=== PATIENT | male | born 1955 | race Caucasian/White ===

== ENCOUNTER 2024-01-26 06:09 | Inpatient (IN) | payer BC, MEDICAID ==
[2024-01-19 11:43] LABS: BASOPHILS % (AUTO) 0.5 % (0-1); EOSINOPHILS # (AUTO) 0.1 X10'3 (0-0.9); EOSINOPHILS % (AUTO) 1.9 % (0-6); LYMPHOCYTES # (AUTO) 1.1 X10'3 (1.1-4.8); LYMPHOCYTES % (AUTO) 18.9 % (21-51); MEAN CORPUSCULAR HGB CONC 34.5 g/dL (33.0-36.5); MEAN CORPUSCULAR VOLUME 89.9 FL (78-98); MONOCYTES # (AUTO) 0.5 X10'3 (0-0.9); MONOCYTES % (AUTO) 8.3 % (2-12); NEUTROPHILS % (AUTO) 70.4 % (42-75); PRE OP HEMATOCRIT 47.8 % (42.0-52.0); PRE OP HEMOGLOBIN 16.5 g/dL (14.0-17.9); PRE OP PLATELET COUNT 314 X10'3 (140-440); PRE OP WHITE BLOOD COUNT 5.7 10'3 (4.8-10.8); RED BLOOD COUNT 5.31 X10'6 (4.70-6.10); RED CELL DISTRIBUTION WIDTH 13.8 % (11.5-14.5)
[2024-01-19 12:14] LABS: ALBUMIN 3.9 G/DL (3.4-5.0); ALKALINE PHOSPHATASE 49 IU/L (46-116); BLOOD UREA NITROGEN 28 MG/DL (7-18); CHLORIDE 100 MMOL/L (99-107); CREATININE 1.22 MG/DL (0.60-1.10); PRE OP ALT 22 U/L (30-65); PRE OP ANION GAP 8 (8-16); PRE OP AST 12 U/L (10-37); PRE OP BILIRUB, TOTAL 0.7 MG/DL (0.0-1.0); PRE OP GLUCOSE 111 MG/DL (70-104); PRE OP POTASSIUM 4.1 MMOL/L (3.4-5.1); PRE OP SODIUM 139 MMOL/L (135-145); TOTAL CARBON DIOXIDE 30.7 MMOL/L (24-32); TOTAL PROTEIN 7.7 G/DL (6.4-8.2); eGFR 59 ML/MIN
[~2024-01-26] VITALS: Ht 180.3 cm; Wt 119.7 kg
[2024-01-26] VITALS (40 sets, daily range): BP systolic 86–180; BP diastolic 53–109; PULSE 56–89; RESP 8–21; TEMP 98–99; O2SAT 86–100
[2024-01-26] MEDS: clindamycin-Cleocin 900mg/D5W 50 ML IV ONE (05:30)
[2024-01-26] MEDS: tranexamic acid inj. 1,000 MG in normal saline IV soln 100ML IV ONE (05:30)
[~2024-01-26 06:09] MED LIST: AMLO10TA PO; LOSA1TAB41 PO; NAPR-56 PO
[2024-01-26] MEDS: famotidine 20mg tablet PO ONE (07:00)
[2024-01-26] MEDS: vancomycin 1,500 MG in NS 300ml IV soln IV ONE (07:02)
[2024-01-26] MEDS: ringers solution, lacted 1,000 ML IV SCH ×2 (07:02→08:20)
[2024-01-26] MEDS ORDERED: vancomycin 1,000mg inj ONE (07:45)
[2024-01-26] MEDS ORDERED: tetracaine 1% (10mg/ml) pres. free inj. ONE (08:09)
[2024-01-26] MEDS ORDERED: MIDAZolam 1mg/ml 10ml vial ONE ×2 (08:13→09:10)
[2024-01-26] MEDS ORDERED: fentaNYL/PF 50MCG/1 ML 2ML syringe IV PRN ×2 (08:20)
[2024-01-26] MEDS ORDERED: ondansetron/PF 4mg/2ml inj IV PRN ×2 (08:20→11:45)
[2024-01-26] MEDS ORDERED: hydrALAZINE 20mg/ml inj. IV PRN (08:20)
[2024-01-26] MEDS ORDERED: labetalol 20mg/4ml (5mg/ml) syringe IV PRN (08:20)
[2024-01-26] MEDS ORDERED: BUPIVAcaine/dex-water/PF 7.5 mg/ml 2ml ampul ONE (08:30)
[2024-01-26] MEDS ORDERED: propofol inj 20 ML IV ONE ×2 (09:08→09:09)
[2024-01-26] MEDS ORDERED: diphenhydrAMINE 50 mg/ml inj ONE (09:19)
[2024-01-26] MEDS: vancomycin 1,000mg inj IVT ONE (09:34)
[2024-01-26] MEDS ORDERED: epiNEPHrine 1 mg/ml inj ONE (09:57)
[2024-01-26] MEDS ORDERED: ROPIVAcaine 0.5% (5mg/ml) 30ml vial ONE ×3 (09:58→11:12)
[2024-01-26] MEDS ORDERED: morphine 10mg/ml inj. ONE (09:58)
[2024-01-26] MEDS: ROPIVAcaine 0.5% (5mg/ml) 30ml vial IJ ONE (10:12)
[2024-01-26] MEDS: morphine 10mg/ml inj. IU ONE (10:13)
[2024-01-26] MEDS: epiNEPHrine 1 mg/ml inj IU ONE (10:14)
[2024-01-26] MEDS ORDERED: acetaminophen 325mg tablet PO PRN (11:45)
[2024-01-26] MEDS ORDERED: magnesium hydroxide 30ml (MOM) UD suspension PO PRN (11:45)
[2024-01-26] MEDS ORDERED: naloxone 0.4 mg/ml inj IV PRN (11:45)
[2024-01-26] MEDS ORDERED: oxyCODONE IR 5mg (immed. release) tablet PO PRN (11:45)
[2024-01-26] MEDS ORDERED: bisacodyl 10mg suppository rectal RC PRN (11:45)
[2024-01-26] MEDS: morphine 4 MG/ML inj SYRINge IV PRN (12:36)
[2024-01-26] MEDS: ROPIVAcaine 0.2%/PF PUMP/bolus 545 ML ADDCANAL SCH (12:50)
[2024-01-26] MEDS: HYDROmorphone 1 mg/ml syringe IV PRN (13:11)
[2024-01-26] MEDS: morphine 2 MG/ML inj. syringe IV PRN (13:55)
[2024-01-26] MEDS: HYDROmorphone inj. 0.5 MG/0.5 ML DISP.SYRIN IV PRN (14:13)
[2024-01-26] MEDS ORDERED: normal saline 1000ml 1,000 ML IV SCH (14:55)
[2024-01-26] MEDS ORDERED: TRANEXAMIC ACID IV ONE (15:00)
[2024-01-26] MEDS ORDERED: NORMAL SALINE IV ONE (15:00)
[2024-01-26] MEDS: tranexamic acid inj. 1,200 MG in normal saline 100ml IV soln 88 ML IV ONE (15:02)
[2024-01-26] MEDS: diphenhydrAMINE 50 mg/ml inj ONE (15:16)
[2024-01-26] MEDS: diphenhydrAMINE 50 mg/ml inj IV ONE (15:20)
[2024-01-26] MEDS: HYDROmorph/NS 0.2 mg/ml PCA 100 ML IV SCH (17:00)
[2024-01-26] MEDS: acetaminophen 325mg tablet PO SCH (20:00)
[2024-01-26] MEDS: amLODIPine 5mg tablet PO SCH (20:13)
[2024-01-26] MEDS: gabapentin 300mg capsule PO SCH (20:14)
[2024-01-26] MEDS: diphenhydrAMINE 25mg capsule PO PRN (20:15)
[2024-01-26] MEDS: vancomycin/NS 1 GM ADD-VANTAGE 250 ML IV SCH (20:15)
[2024-01-26] MEDS: sennosides 8.6mg tablet PO SCH (21:00)
[2024-01-26] MEDS: oxyCODONE IR 5mg (immed. release) tablet PO PRN (22:01)
[2024-01-27] VITALS (9 sets, daily range): BP systolic 141–173; BP diastolic 71–85; PULSE 64–104; RESP 15–20; TEMP 97.2–98.3; O2SAT 92–95
[2024-01-27] MEDS: HYDROchlorothiazide 12.5mg capsule PO SCH (09:02)
[2024-01-27] MEDS: enoxaparin 40mg/0.4ml syringe SQ SCH (09:03)
[2024-01-27] MEDS: diphenhydrAMINE 25mg capsule PO PRN (09:52)
[2024-01-27] MEDS: losartan 50mg tablet PO SCH (10:56)
[2024-01-27] MEDS: potassium Cl 20mEq in NS 1,000 ML IV SCH (10:59)
[2024-01-27] MEDS: PCA WASTE DOCUMENTATION 1 MG ML MC SCH (20:24)
[2024-01-28 06:26] VITALS: BP 161/98; PULSE 70; RESP 16; TEMP 96.8; O2SAT 95
[2024-01-28 08:00] VITALS: RESP 18; O2SAT 93
[2024-01-28 10:00] VITALS: BP 140/75; PULSE 86; RESP 18; TEMP 98.6; O2SAT 95
[2024-01-28] MEDS ORDERED: acetaminophen 325mg tablet PO PRN (11:45)
[2024-01-28] MEDS: ROPIVAcaine 0.2% (10 MG/5 ML) BOLUS INJECTION ADDCANAL PRN (15:29)
[2024-01-28 18:00] VITALS: BP 152/76; PULSE 99; RESP 18; TEMP 98.6; O2SAT 95
[2024-01-28 20:00] VITALS: RESP 15; O2SAT 95
[2024-01-28 22:00] VITALS: BP 157/80; PULSE 108; RESP 18; TEMP 98.6; O2SAT 93
[2024-01-29 06:00] VITALS: BP 144/81; PULSE 89; RESP 16; TEMP 98.9; O2SAT 94
[2024-01-29 10:00] VITALS: BP 148/82; PULSE 87; RESP 18; TEMP 98.7; O2SAT 96
== END 2024-01-29 14:55 | disposition home or self-care (01) | DRG 470 ==
LOC: PAS 06:09 → PAS IN 11:58 → ORTHO 4S 16:54
PROVIDERS: ADMIT Orthopaedic Surgery; ATTEND Orthopaedic Surgery
PROC: 0JH80WZ Insertion of Totally Implantable Vascular Access Device into Abdomen Subcutaneous Tissue and Fascia, Open Approach (ICD-10-PCS; 2024-01-26)
PROC: 3E0T3BZ Introduction of Anesthetic Agent into Peripheral Nerves and Plexi, Percutaneous Approach (ICD-10-PCS; 2024-01-26)
PROC: 0SRD0JA Replacement of Left Knee Joint with Synthetic Substitute, Uncemented, Open Approach (ICD-10-PCS; principal; 2024-01-26 08:30)
DX: M17.12 Unilateral primary osteoarthritis, left knee (principal); M24.562 Contracture, left knee
CPT/HCPCS: 36415; 73560; 80053; 82948; 85025; 87081; 97110; 97116; 97161; 97530; A4215; A4615; A6253; A6258; A6446; A6449; A7000; C1758; C1776; C9250; G0378; J0171; J1170; J1200; J1650; J2250; J2270; J2274; J2704; J2795; J3370; J3480; J3490; J7120; Q0163

== ENCOUNTER → 2024-09-07 | Outpatient (CLI) | payer BC, MEDICAID ==
[~2024-09-07] VITALS: Ht 180.3 cm; Wt 113.4 kg
[~2024-09-07] MED LIST changes: +CEPH-585 PO; +cefazolin 2gm/D5W 100mL 100 ML IV ONE; +famotidine 20mg tablet PO ONE; +fentaNYL/PF 50MCG/1 ML 2ML syringe ONE; +propofol inj 20 ML IV ONE; +ringers solution, lacted 1,000 ML IV SCH; +rocuronium 10mg/ml inj IV ONE; +sugammadex 200mg/2ml injection IV ONE; +tranexamic acid inj. 1,000 MG in normal saline IV soln 100ML IV ONE; +vancomycin 1,500 MG in NS 300ml IV soln IV ONE
[2024-09-07 15:38] LABS: BASOPHILS % (AUTO) 0.6 % (0-1); EOSINOPHILS # (AUTO) 0.1 X10'3 (0-0.9); EOSINOPHILS % (AUTO) 1.3 % (0-6); LYMPHOCYTES # (AUTO) 1.8 X10'3 (1.1-4.8); LYMPHOCYTES % (AUTO) 25.4 % (21-51); MEAN CORPUSCULAR HEMOGLOBIN 30.4 PG (27.0-31.0); MEAN CORPUSCULAR HGB CONC 34.4 g/dL (33.0-36.5); MEAN CORPUSCULAR VOLUME 88.5 FL (78-98); MEAN PLATELET VOLUME 7.4 FL (7.4-10.4); MONOCYTES # (AUTO) 0.6 X10'3 (0-0.9); MONOCYTES % (AUTO) 9.2 % (2-12); NEUTROPHILS # (AUTO) 4.4 X10'3 (1.8-7.7); NEUTROPHILS % (AUTO) 63.5 % (42-75); PRE OP HEMATOCRIT 45.8 % (42.0-52.0); PRE OP HEMOGLOBIN 15.8 g/dL (14.0-17.9); PRE OP PLATELET COUNT 379 X10'3 (140-440); RED BLOOD COUNT 5.18 X10'6 (4.70-6.10); RED CELL DISTRIBUTION WIDTH 14.3 % (11.5-14.5)
[2024-09-07 15:48] LABS: ALBUMIN 4.1 G/DL (3.4-5.0); ALBUMIN/GLOBULIN RATIO 1.1 (1.1-1.5); ALKALINE PHOSPHATASE 50 IU/L (46-116); BLOOD UREA NITROGEN 23 MG/DL (7-18); BUN/CREATININE RATIO 17.2 (10.0-20.0); CALCIUM 8.9 MG/DL (8.5-10.1); CHLORIDE 100 MMOL/L (99-107); CREATININE 1.34 MG/DL (0.60-1.10); PRE OP ALT 22 U/L (30-65); PRE OP ANION GAP 5 (8-16); PRE OP AST 12 U/L (10-37); PRE OP BILIRUB, TOTAL 0.5 MG/DL (0.0-1.0); PRE OP GLUCOSE 112 MG/DL (70-104); PRE OP POTASSIUM 3.8 MMOL/L (3.4-5.1); PRE OP SODIUM 137 MMOL/L (135-145); TOTAL CARBON DIOXIDE 31.7 MMOL/L (24-32); TOTAL PROTEIN 7.9 G/DL (6.4-8.2); eGFR 53 ML/MIN
== END | disposition home or self-care (01) ==
LOC: LAB 08:00 → EDSTATUS 09-13 11:00
PROVIDERS: ATTEND Orthopaedic Surgery
DX: Z01.818 Encounter for other preprocedural examination (principal); M19.011 Primary osteoarthritis, right shoulder
CPT/HCPCS: 36415; 80053; 85025; 87081; J0690; J2704; J3010; J3370; J3490; J7120